=== PATIENT | female | born 1990 | race African-American/Black ===

== ENCOUNTER 2020-01-24 16:27 | Outpatient (CLI) | payer SELFPAY ==
[2020-01-24 17:45] LABS: APPEARANCE,URINE CLEAR; BILIRUBIN,URINE NEGATIVE (NEGATIVE); COLOR,URINE YELLOW; GLUCOSE, URINE NEGATIVE (NEGATIVE); KETONES,URINE NEGATIVE (NEGATIVE); LEUKOCYTE ESTERASE,URINE NEGATIVE (NEGATIVE); NITRITE,URINE NEGATIVE (NEGATIVE); PROTEIN,URINE NEGATIVE (NEGATIVE); URINE SPECIFIC GRAVITY 1.018; UROBILINOGEN,URINE NEGATIVE mg/dL (<2.0)
[2020-01-24 18:00] LABS: URINE AMPHETAMINES SCREEN NEGATIVE; URINE BARBITURATES SCREEN NEGATIVE; URINE BENZODIAZEPINES SCREEN NEGATIVE; URINE COCAINE SCREEN NEGATIVE; URINE MARIJUANA (THC) SCREEN NEGATIVE; URINE METHADONE SCREEN NEGATIVE; URINE PHENCYCLIDINE SCREEN NEGATIVE
--- NOTE | 2020-01-24 20:00 | Non Stress Test Report ---
Non Stress Test Datetime Report Generated by CPN: 01/24/2020 20:00 DEMOGRAPHIC EGA NST: 34.3 INDICATION Indication for Study (NST) Other: 34.3 wk round ligament syndrome MONITORING Monitor Explained: Monitor Explained; Test Explained; Patient Verbalized Understanding Time on Monitor: 01/24/2020 16:40 Time off Monitor: 01/24/2020 17:01 NST Duration: 21 NST INTERVENTIONS NST Interventions: PO Hydration Physician Notified NST: Dr Ramirez BABY A: [id number] BABY A Movement : Present Contraction Frequency : 0 FHR Baseline : 140 Accelerations : 15X15 Decelerations : None Variability : Moderate 6-25bpm NST Review: Meets Criteria for Reactive NST NST Review and Verified By : Clemencia Bryant RN NST Results: Reactive NST REPORT Report Trigger: Send Report
== END 2020-01-24 18:16 | disposition home or self-care (01) ==
LOC: LC 16:27
PROVIDERS: ATTEND Obstetrics & Gynecology
PROC: 4A1HXCZ Monitoring of Products of Conception, Cardiac Rate, External Approach (ICD-10-PCS; principal; 2020-01-24)
DX: O26.893 Other specified pregnancy related conditions, third trimester (principal); Z3A.34 34 weeks gestation of pregnancy
CPT/HCPCS: 59025; 80307; 81001

== ENCOUNTER 2020-02-01 11:35 | Outpatient (CLI) | payer SELFPAY ==
[2020-02-01 12:23] LABS: APPEARANCE,URINE CLOUDY; BILIRUBIN,URINE NEGATIVE (NEGATIVE); COLOR,URINE YELLOW; GLUCOSE, URINE NEGATIVE (NEGATIVE); KETONES,URINE NEGATIVE (NEGATIVE); LEUKOCYTE ESTERASE,URINE MODERATE (NEGATIVE); NITRITE,URINE NEGATIVE (NEGATIVE); PROTEIN,URINE NEGATIVE (NEGATIVE); URINE SPECIFIC GRAVITY 1.018
[2020-02-01 12:38] LABS: URINE AMPHETAMINES SCREEN NEGATIVE; URINE BARBITURATES SCREEN NEGATIVE; URINE BENZODIAZEPINES SCREEN NEGATIVE; URINE COCAINE SCREEN NEGATIVE; URINE MARIJUANA (THC) SCREEN NEGATIVE; URINE METHADONE SCREEN NEGATIVE; URINE PHENCYCLIDINE SCREEN NEGATIVE
--- NOTE | 2020-02-01 13:03 | Non Stress Test Report ---
Non Stress Test Datetime Report Generated by CPN: 02/01/2020 13:03 DEMOGRAPHIC EGA NST: 35.4 INDICATION Indication for Study (NST) Other: labor check VITAL SIGNS Temperature - NST: 98.2 Pulse - NST: 85 RESP - NST: 16 NBPSYS NST: 128 NBPDIA NST: 78 MONITORING Time on Monitor: 02/01/2020 11:56 Time off Monitor: 02/01/2020 12:59 NST Duration: 63 NST INTERVENTIONS NST Interventions: PO Hydration Physician Notified NST: A Fregoso CNM BABY A: [id number] BABY A Movement : Present Contraction Frequency : 0 FHR Baseline : 135 Accelerations : 15X15 Decelerations : None Variability : Moderate 6-25bpm NST Review: Meets Criteria for Reactive NST NST Review and Verified By : Suzy Porras RN NST Results: Reactive NST REPORT Report Trigger: Send Report
== END 2020-02-01 13:01 | disposition home or self-care (01) ==
LOC: LC 11:35
PROVIDERS: ATTEND Obstetrics & Gynecology Gynecology
DX: O47.03 False labor before 37 completed weeks of gestation, third trimester (principal); Z3A.35 35 weeks gestation of pregnancy
CPT/HCPCS: 59025; 80307; 81001; 87086

== ENCOUNTER 2020-02-12 15:49 | Outpatient (CLI) | payer MEDICAID ==
--- NOTE | 2020-02-12 16:34 | Non Stress Test Report ---
Non Stress Test Datetime Report Generated by CPN: 02/12/2020 16:33 DEMOGRAPHIC EGA NST: 37.1 INDICATION Indication for Study (NST) Other: Provider Order. VITAL SIGNS Temperature - NST: 98.2 Pulse - NST: 76 RESP - NST: 18 NBPSYS NST: 115 NBPDIA NST: 70 MONITORING Monitor Explained: Monitor Explained; Test Explained; Patient Verbalized Understanding Time on Monitor: 02/12/2020 16:00 Time off Monitor: 02/12/2020 16:22 NST Duration: 22 NST INTERVENTIONS NST Interventions: PO Hydration Physician Notified NST: K Duque CNM BABY A: [id number] BABY A Movement : Present Contraction Frequency : x1 FHR Baseline : 135 Accelerations : 15X15 Decelerations : Variable Variability : Moderate 6-25bpm NST Review: Meets Criteria for Reactive NST NST Review and Verified By : JNiebu,RN NST Results: Reactive NST REPORT Report Trigger: Send Report
== END 2020-02-12 16:29 | disposition home or self-care (01) ==
LOC: LC 15:49
PROVIDERS: ATTEND Obstetrics & Gynecology
DX: Z34.93 Encounter for supervision of normal pregnancy, unspecified, third trimester (principal)
CPT/HCPCS: 59025